=== PATIENT | male | born 1985 | race Two or more races ===

== ENCOUNTER 2019-11-01 18:31 | Emergency (ER) | payer SELFPAY ==
[~2019-11-01] VITALS: Ht 172.7 cm; Wt 81.8 kg
[2019-11-01 19:29] LABS: BASO % 0 % (0-3); EOS % 0 % (0-3); HEMATOCRIT 52.4 % (39.0-53.0); HEMOGLOBIN 18.3 g/dL (13.0-17.5); LYMPH # 0.5 x10^3/uL (1.0-4.8); LYMPH % 16 % (24-48); MEAN CORPUSCULAR HEMOGLOBIN 31 pg (25-35); MEAN CORPUSCULAR HGB CONC 35 g/dL (31-37); MEAN CORPUSCULAR VOLUME 87 fL (79-100); MONO # 0.5 x10^3/uL (0.0-1.1); MONO % 16 % (0-9); NEUT # 2.2 x10^3/uL (1.8-7.7); NEUT % 68 % (31-73); PLATELET COUNT 101 x10^3/uL (140-400); RED BLOOD COUNT 6.02 x10^6/uL (4.30-5.70); RED CELL DISTRIBUTION WIDTH 13.1 % (11.5-14.5); WHITE BLOOD COUNT 3.3 x10^3/uL (4.0-11.0)
[2019-11-01 19:45] LABS: CALCIUM 8.2 mg/dL (8.5-10.1); GFR 85.5; POTASSIUM 3.8 mmol/L (3.5-5.1)
[2019-11-01 19:58] LABS: ALBUMIN 3.6 g/dL (3.4-5.0); ALBUMIN/GLOBULIN RATIO 0.9 (1.0-1.7); TOTAL BILIRUBIN 0.5 mg/dL (0.2-1.0); TOTAL PROTEIN 7.5 g/dL (6.4-8.2)
--- NOTE | 2019-11-01 20:02 | RAD ---
Exam: Chest one view INDICATION: Shortness of breath TECHNIQUE: Frontal view of the chest Comparisons: None FINDINGS: The cardiomediastinal silhouette and pulmonary vessels are within normal limits. Patchy perihilar opacity bilaterally. No pleural effusion. IMPRESSION: Patchy perihilar opacity, may relate to atelectasis versus developing infectious process. Electronically signed by: Nicanor Henley MD (11/01/2019 7:59 PM) [id number]
--- NOTE | 2019-11-01 20:19 | PHYS DOC ---
Past Medical History Past Medical History: Diabetes-Type II Past Surgical History: Other Additional Past Surgical Histo: LEFT ANKLE Smoking Status: Never Smoker Alcohol Use: Occasionally General Adult EDM: Chief Complaint: DYSPNEA/RESPIRATOY DISTRESS HPI: HPI: Patient is a 34 year old male presents to the ED with a chief complaint of generalized weakness. Patient states that he is unable to hold anything down secondary to nausea and vomiting. Patient states that the symptoms are gone on for the last 4 days. Patient was tested for "COVID which is October 28. He does not know the results yet. Patient does admit to having diabetes. Patient complains of abdominal cramping secondary to vomiting. Review of Systems: Review of Systems: Constitutional: Denies fever or chills. [] Eyes: Denies change in visual acuity. [] HENT: Denies nasal congestion or sore throat. [] Respiratory: Denies cough or shortness of breath. [] Cardiovascular: Denies chest pain or edema. [] GI: Complains of nausea, vomiting and abdominal cramping which is diffuse [] : Denies dysuria. [] Musculoskeletal: Denies back pain or joint pain. [] Integument: Denies rash. [] Neurologic: Denies headache, focal weakness or sensory changes. [] Heart Score: Risk Factors: Risk Factors: DM, Current or recent (<one month) smoker, HTN, HLP, family history of CAD, obesity. Risk Scores: Score 0 - 3: 2.5% MACE over next 6 weeks - Discharge Home Score 4 - 6: 20.3% MACE over next 6 weeks - Admit for Clinical Observation Score 7 - 10: 72.7% MACE over next 6 weeks - Early Invasive Strategies Current Medications: Current Medications Medications (Trade) Dose Ordered Sig/Carlos Manuel Start Time Stop Time Status Last Admin Dose Admin Azithromycin 250 ml @ 250 mls/hr 1X ONCE 11/01/19 20:15 11/01/19 21:14 UNV Ceftriaxone Sodium (Rocephin) 1 gm 1X ONCE 11/01/19 20:15 11/01/19 20:16 UNV Sodium Chloride 1,000 ml @ 1,000 mls/hr 1X ONCE 11/01/19 19:45 11/01/19 20:44 UNV Physical Exam: PE: Constitutional: Well developed, well nourished, no acute distress, non-toxic appearance. [] HENT: Normocephalic, atraumatic Eyes: EOMI Neck: Normal range of motion, Supple Cardiovascular:Heart rate regular rhythm Lungs & Thorax: Bilateral breath sounds clear to auscultation [] Abdomen: Diffuse abdominal cramping. No focal abdominal tenderness Extremities: No tenderness, ROM intact Neurologic: Alert and oriented X 3 Current Patient Data: Labs: Laboratory Tests Test 11/01/19 19:05 White Blood Count 3.3 x10^3/uL (4.0-11.0) L Red Blood Count 6.02 x10^6/uL (4.30-5.70) H Hemoglobin 18.3 g/dL (13.0-17.5) H Hematocrit 52.4 % (39.0-53.0) Mean Corpuscular Volume 87 fL (79-100) Mean Corpuscular Hemoglobin 31 pg (25-35) Mean Corpuscular Hemoglobin Concent 35 g/dL (31-37) Red Cell Distribution Width 13.1 % (11.5-14.5) Platelet Count 101 x10^3/uL (140-400) L Neutrophils (%) (Auto) 68 % (31-73) Lymphocytes (%) (Auto) 16 % (24-48) L Monocytes (%) (Auto) 16 % (0-9) H Eosinophils (%) (Auto) 0 % (0-3) Basophils (%) (Auto) 0 % (0-3) Neutrophils # (Auto) 2.2 x10^3/uL (1.8-7.7) Lymphocytes # (Auto) 0.5 x10^3/uL (1.0-4.8) L Monocytes # (Auto) 0.5 x10^3/uL (0.0-1.1) Eosinophils # (Auto) 0.0 x10^3/uL (0.0-0.7) Basophils # (Auto) 0.0 x10^3/uL (0.0-0.2) Sodium Level 134 mmol/L (136-145) L Potassium Level 3.8 mmol/L (3.5-5.1) Chloride Level 96 mmol/L (98-107) L Carbon Dioxide Level 18 mmol/L (21-32) L Anion Gap 20 (6-14) H Blood Urea Nitrogen 12 mg/dL (8-26) Creatinine 1.0 mg/dL (0.7-1.3) Estimated GFR (Cockcroft-Gault) 85.5 BUN/Creatinine Ratio 12 (6-20) Glucose Level 327 mg/dL (70-99) H Lactic Acid Level 1.2 mmol/L (0.4-2.0) Calcium Level 8.2 mg/dL (8.5-10.1) L Total Bilirubin 0.5 mg/dL (0.2-1.0) Aspartate Amino Transferase (AST) 36 U/L (15-37) Alanine Aminotransferase (ALT) 65 U/L (16-63) H Alkaline Phosphatase 66 U/L (46-116) Troponin I Quantitative < 0.017 ng/mL (0.000-0.055) Total Protein 7.5 g/dL (6.4-8.2) Albumin 3.6 g/dL (3.4-5.0) Albumin/Globulin Ratio 0.9 (1.0-1.7) L Lipase 83 U/L (73-393) Laboratory Tests 11/01/19 19:05 Laboratory Tests 11/01/19 19:05 Vital Signs: Vital Signs Date Time Temp Pulse Resp B/P (MAP) Pulse Ox O2 Delivery O2 Flow Rate FiO2 11/01/19 18:45 100.0 99 19 138/84 (102) 99 Room Air 100.0 EKG: EKG: [EKG interpretation: 19: 07 ON 11/01/2019 HR: 97 Sinus rhythm Regular intervals Leftward axis Nonspecific ST changes No STEMI ] Radiology/Procedures: Radiology/Procedures: [] Impression: CXR IMPRESSION: Patchy perihilar opacity, may relate to atelectasis versus developing infectious process. Course & Med Decision Making: Course & Med Decision Making Pertinent Labs and Imaging studies reviewed. (See chart for details) Patient does not have elevation of WBC. Chest x-ray shows IMPRESSION: Patchy perihilar opacity, may relate to atelectasis versus developing infectious process. EKG does not show any acute changes. Patient is given IV antibiotics in the ER. Patient is given total of 2 L IV fluids in the ER. ABG shows a pH of 7.35 Ketones are positive with small amounts Patient's oxygenation is at 98% on room air. Patient's blood glucose is 327. Patient states that he will go home and take his diabetes medication. Patient was to be discharged home for outpatient follow-up. We will discharge patient home on oral antibiotics. Patient is also instructed to self quarantine for 14 days. Discussed results and plan of care with patient. Patient is instructed to follow up with PCP in one to 2 days. Appropriate discharge instructions given to patient to return to the ED or to [facility] immediate medical evaluation. Patient is instructed to return to the ED if symptoms worsen or if any concerns. Dragon Disclaimer: Brennan Disclaimer: This electronic medical record was generated, in whole or in part, using a voice recognition dictation system. Departure Departure Impression: Primary Impression: Vomiting Additional Impressions: Dehydration Suspected COVID-19 virus infection Pneumonia Disposition: HOME, SELF-CARE Condition: IMPROVED Referrals: NO PCP (PCP) Patient Instructions: Dehydration, Adult, Nausea and Vomiting, Pneumonia, Adult Additional Instructions: Discussed results and plan of care with patient. Patient is instructed to follow up with PCP in one to 2 days. Appropriate discharge instructions given to patient to return to the ED or to seek immediate medical evaluation. Patient is instructed to return to the ED if symptoms worsen or if any concerns. Scripts Ondansetron Hcl (ZOFRAN) 4 Mg Tablet 4 MG PO PRN TID PRN for NAUSEA, #15 nausea/vomiting Prov: NAREN JOHN DO 11/01/19 Azithromycin (ZITHROMAX) 250 Mg Tablet 250 MG PO DAILY for ANTI-BIOTIC for 4 Days, #4 TAB 0 Refills Prov: NAREN JOHN DO 11/01/19 Justicifation of Admission Dx: Justifications for Admission: Justification of Admission Dx: No COVID-19 Assessment: COVID-19 Patient Risks: Age 65 or older: No Sign of co-morbidity: Yes Exp to person + for COVID: No Exp to PUI: No Travel from affected area: No Lower respiratory symptoms: Yes Fever: Yes PPE Use: Full PPE with N95 mask or PAPR: Yes NAREN JOHN DO Nov 01, 2019 20:19
[2019-11-01] MEDS ORDERED: cefTRIAXone IV Push 1 GM VIAL. IVP ONE (21:30)
[2019-11-01] MEDS ORDERED: AZITHRMYCN 500MG IVPB FOR OMNI 250 ML IV ONE (21:30)
[2019-11-01] MEDS ORDERED: IV NORMAL SALINE 1000ML BAG 1,000 ML IV ONE ×2 (21:30)
[2019-11-01 21:40] LABS: BILIRUBIN,URINE NEGATIVE (NEG); CLARITY,URINE CLEAR; COLOR,URINE YELLOW; NITRITE,URINE NEGATIVE (NEG); PROTEIN,URINE 100 mg/dL (NEG-TRACE); UROBILINOGEN,URINE 0.2 mg/dL (0.2 mg/dL)
[2019-11-01 21:48] LABS: BACTERIA,URINE 0 /HPF (0-FEW); RBC,URINE 0 /HPF (0-2); WBC,URINE OCC /HPF (0-4)
[2019-11-01] MEDS ORDERED: ONDANSETRON PF 4 MG/2 ML VIAL. IVP ONE (22:00)
[2019-11-01 22:15] VITALS: BP 145/87
[2019-11-01 22:25] LABS: BASE EXCESS ABG -8 mmol/L (-3-3); HCO3 ABG 15 mmol/L (21-28); PCO2 ABG 28 mmHg (35-46); PO2 ABG 76 mmHg (85-108); SAT O2 ABG 95 % (92-99)
[2019-11-01 22:29] LABS: FIO2 ABG 21
[2019-11-01] MEDS ORDERED: ONDA4TAB7 PO (22:40)
[2019-11-01] MEDS ORDERED: AZIT250T PO (22:40)
--- NOTE | 2019-11-02 13:45 | EKG ---
[facility] [address] [place] [address] Test Date: 2019-11-01 Test Time: 19:07:27 Pat Name: OSMAN ASHFORD Department: Room: Gender: M Wood Flour Miller: : 1985 Requested By: NAREN JOHN Order Number: [id number] Reading MD: Measurements Intervals Watson Rate: 97 P: 29 HI: 138 QRS: -23 QRSD: 90 T: 17 QT: 350 QTc: 449 Interpretive Statements SINUS RHYTHM LEFTWARD AXIS OTHERWISE NORMAL ECG RI6.02 No previous ECG available for comparison
== END 2019-11-01 22:44 | disposition home or self-care (01) ==
LOC: ER 18:31
DX: J18.9 Pneumonia, unspecified organism (principal); E86.0 Dehydration; Z20.828 Contact with and (suspected) exposure to other viral communicable diseases; R11.2 Nausea with vomiting, unspecified; R53.1 Weakness; E11.9 Type 2 diabetes mellitus without complications; Z98.890 Other specified postprocedural states; Z79.899 Other long term (current) drug therapy
CPT/HCPCS: 36415; 36600; 71045; 80053; 81001; 82010; 82805; 83605; 83690; 84484; 85025; 87040; 93005; 96361; 96365; 96375; 99285; J0456; J0696; J2405; J7030